=== PATIENT | female | born 1965 | race Caucasian/White ===

== ENCOUNTER 2016-11-23 09:19 | Emergency (ER) | payer OTHER ==
[~2016-11-23] VITALS: Ht 157.5 cm; Wt 67.0 kg
[~2016-11-23 09:19] MED LIST: ASC500 PO; FERR-55 PO; HYDR-3498 PO; LISI2.5T59 PO; LOPE2CAP PO; METF500T4 PO; NAPR-260 PO
[2016-11-23 09:22] VITALS: Ht 157.5 cm; Wt 67.0 kg
[2016-11-23] MEDS ORDERED: KETOROLAC 30 MG INJ IM STA (09:42)
[2016-11-23] MEDS ORDERED: NAPR-260 PO (09:50)
[2016-11-23] MEDS ORDERED: CYCL5TAB PO (09:50)
--- NOTE | 2016-11-23 10:01 | ERD ---
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 She states that he was about to fall she reached out to grab him and since then has been complaining of achy pain that is diffuse in the right lateral back, moderate, worse with movement and better at rest. She is denies paresthesias, weakness or loss of bowel bladder function. Denies saddle anesthesia. She denies chest pain, abdominal pain, shortness of breath. ROS All systems reviewed and are negative except as per history of present illness. Medications Home Meds Active Scripts Naproxen* (Naprosyn*) 500 Mg Tablet, 500 MG PO BID, #30 TAB Prov:JUAN NUNEZ PA-C 11/23/16 Cyclobenzaprine Hcl* (Cyclobenzaprine Hcl*) 5 Mg Tablet, 5 MG PO Q8H Y for PAIN , #7 TAB Prov:JUAN NUNEZ PA-C 11/23/16 Loperamide Hcl* (Imodium*) 2 Mg Capsule, 2 MG PO .AFTER EA LOOSE BM Y for DIARRHEA, #10 TAB Prov:LUZ MARIA BASHIR DO 09/21/15 Naproxen* (Naprosyn*) 500 Mg Tablet, 500 MG PO BID Y for PAIN AND/OR INFLAMMATION, #14 TAB Prov:LUZ MARIA BASHIR DO 09/21/15 Hydrocodone Bit-Acetaminophen* ([place]*) 5-325 Mg Tab, 1 TAB PO Q6 Y for PAIN, # 7 TAB Prov:LUZ MARIA BASHIR DO 09/21/15 Ferrous Sulfate* (Ferrous Sulfate*) 325 Mg Tablet, 325 MG PO BID for 30 Days, TAB Prov:SHAE SERNA 10/15/14 Lisinopril* (Lisinopril*) 2.5 Mg Tablet, 2.5 MG PO DAILY, #30 TAB Prov:SHAE SERNA. 10/15/14 Ascorbic Acid (Vitamin C) 500 Mg Tab, 500 MG PO DAILY for 30 Days, TAB Prov:SHAE SERNA 10/15/14 Reported Medications Metformin Hcl* (Metformin Hcl*) 500 Mg Tablet, 500 MG PO BID, TAB 10/12/14 Allergies Allergies: Coded Allergies: No Known Allergy (Unverified , 10/10/14) PMhx/Soc History of Surgery: Yes (C-sectionx3) Anesthesia Reaction: No Hx Neurological Disorder: No Hx Respiratory Disorders: No Hx Cardiac Disorders: No Hx Psychiatric Problems: No Hx Miscellaneous Medical Probl: No (anemia) Hx Alcohol Use: No Hx Substance Use: Yes Hx Tobacco Use: Yes Smoking Status: Current every day smoker Physical Exam Vitals Vital Signs Date Time Temp Pulse Resp B/P Pulse Ox O2 Delivery O2 Flow Rate FiO2 11/23/16 09:22 98.3 92 20 136/67 97 Physical Exam General: Well-developed, well-nourished. The patient appears in no acute distress. HEENT: Head is normocephalic, atraumatic. No scleral icterus. Neck: Supple. Nontender. Lungs: Clear to auscultation. Normal air movement. Heart: Regular rate and rhythm. S1 and S2 are normal. No murmurs, gallops, or rubs. Abdomen: Soft, nontender, nondistended. Bowel sounds are normoactive. Back: There is diffuse tenderness with palpation over the right lateral back, there is no rash. There is no CVA tenderness. There is no midline tenderness over the spine. Gait is normal, strength lower extremities 5 out of 5 bilaterally. Extremities: No clubbing or cyanosis. Normal pulses. Moving extremities x 4. No weakness. Neurologic: Alert and oriented 3. No focal deficits. Skin: Normal turgor. No rash or lesions. Results 24 hrs Current Medications Medications (Trade) Dose Ordered Sig/Jessie Route PRN Reason Start Time Stop Time Status Last Admin Dose Admin Ketorolac Tromethamine (Toradol) 30 mg ONCE STAT IM 11/23/16 09:42 11/23/16 09:43 DC Procedures/MDM MDM: 50-year-old female presents with mid to low back pain that is all lateral after trying to prevent her father from falling. She states that she leaned forward to try to catch him and since then she has had pain. Suspicion for kidney stones, pyelonephritis, dissection, cauda equina, gallstones, pancreatitis, pneumonia, pulmonary embolus is low. Patient's pain is reproducible with palpation on the back, and it is lateral. There is no midline tenderness, suspicion for fracture or subluxation is low. She was medicated with Toradol in the emergency room and is resting comfortably and will be discharged home. Departure Diagnosis: Primary Impression: Back strain Condition: Good Patient Instructions: Back Sprain/Strain Additional Instructions: Llame al doctor MAANA y caleb clif GILBERT PARA DENTRO DE 1-2 HENDRICKSON.Dgale a la secretaria que nosotros le instruimos hacer esta gilbert.Avise o llame si jean condicin se empeora antes de la gilbert. Regresa aqui si peor o no mejor. JUAN NUNEZ PA-C Nov 23, 2016 10:01
== END 2016-11-23 10:22 | disposition home or self-care (01) ==
LOC: FTE 09:19
DX: S39.012A Strain of muscle, fascia and tendon of lower back, initial encounter (principal); F17.210 Nicotine dependence, cigarettes, uncomplicated; X50.1XXA Overexertion from prolonged static or awkward postures, initial encounter; Y92.9 Unspecified place or not applicable
CPT/HCPCS: 96372; J1885; Z7502